=== PATIENT | male | born 1945 | race Caucasian/White ===

== ENCOUNTER 2017-12-21 22:40 | Emergency (ER) | payer MEDICARE, OTHER ==
--- NOTE | 2017-12-21 22:56 | EDM.PDOC ---
ED HPI GENERAL MEDICAL PROBLEM - General Chief Complaint: Genitourinary Problem Stated Complaint: can't pee Time Seen by Provider: 12/21/17 22:44 Source of Information: Reports: Patient History Limitations: Reports: No Limitations - History of Present Illness INITIAL COMMENTS - FREE TEXT/NARRATIVE: Patient presents to the emergency room this evening with complaints of inability to urinate. Most recently was at [facility] in [place] to have his gallbladder removed which was done on Monday of this week. Before discharge on Monday he was unable to urinate saluted straight catheter him at that time he is unable to tell me what the amount voided was. He is here this evening with concerns that he has urinary retention. He denies having any pressure or pain to the lower pelvic area. He denies chest pain, headache, abdominal pain, blood in his urine or stool. He has not urinated since yesterday, he did have dialysis yesterday. History of end stage renal disease requiring dialysis on , , . AV fistula to left arm Primary doctor is Anuj Hutchins at the [facility] in [place]. Additional medical history includes Onset: Gradual Severity: Mild Worsens with: Reports: None Associated Symptoms: Reports: No Other Symptoms - Related Data Allergies Allergy/AdvReac Type Severity Reaction Status Date / Time cat dander Allergy Sneezing Verified 12/21/17 23:02 codeine Allergy Nausea and Verified 12/21/17 23:02 Vomiting cortisone Allergy Other Verified 12/21/17 23:02 latex Allergy Itching Verified 12/21/17 23:02 NSAIDS (Non-Steroidal Allergy Other Verified 12/21/17 23:02 Anti-Inflamma contrast dye Allergy Cough Uncoded 12/21/17 23:02 Home Meds: Home Meds Albuterol Sulfate [Albuterol Sulfate HFA] 1 puff IH Q4HR PRN 03/20/14 [History] Budesonide/Formoterol [Symbicort 160-4.5 MCG] 2 puff INH BID 03/20/14 [History] Gabapentin [Neurontin] 100 mg PO TID 05/03/14 [History] Nitroglycerin [Nitrostat] 0.4 mg SL ASDIRECTED PRN 05/03/14 [History] Tiotropium [Spiriva HandiHaler] 18 mcg INH ASDIRECTED 05/03/14 [History] atorvaSTATin [Lipitor] 40 mg PO BEDTIME 05/03/14 [History] Amiodarone HCl 200 mg PO DAILY 08/11/14 [History] Cholecalciferol (Vitamin D3) [Vitamin D3] 1,000 unit PO DAILY 08/11/14 [History] Ticagrelor [Brilinta] 90 mg PO BID 08/11/14 [History] Furosemide 40 mg PO DAILY 12/16/14 [History] Midodrine 5 mg PO MOWEFR@10 12/16/14 [History] Darbepoetin Syd [Aranesp] 25 mcg IV ASDIRECTED 05/15/15 [History] Doxercalciferol [Hectorol] 2 mcg IV ASDIRECTED 05/15/15 [History] Metoprolol Tartrate 12.5 mg PO ASDIRECTED 05/15/15 [History] Sodium Ferric Gluconat/Sucrose [Ferrlecit 62.5 mg/5 ml Vial] 12.5 mg IV ASDIRECTED 05/15/15 [History] Acetaminophen/oxyCODONE [Percocet 325-5 MG] 1 - 2 tab PO QID PRN 10/12/16 [ History] Aspirin 81 mg PO DAILY 10/12/16 [History] Ferrous Sulfate [Iron] 325 mg PO BID 10/12/16 [History] Multivitamin [Multivitamins] 0.5 tab PO BID 10/12/16 [History] Vit B Cmplx NO3/Fa/C/Biot/Zinc [Nephplex Rx] 1 each PO DAILY 10/12/16 [History] oxyCODONE ER [OxyCONTIN] 10 mg PO Q4H PRN 10/12/16 [History] Past Medical History Cardiovascular History: Reports: CAD, Heart Failure Respiratory History: Reports: COPD Genitourinary History: Reports: Chronic Renal Insuffiency, Dialysis Other Musculoskeletal History: rib fx Other Dermatologic History: very dry scaly skin Social & Family History - Tobacco Use Smoking Status *Q: Unknown Ever Smoked Years of Tobacco use: 50 Used Tobacco, but Quit: Yes Month/Year Tobacco Last Used: 20 years ago Second Hand Smoke Exposure: No - Alcohol Use Days Per Week of Alcohol Use: 0 Number of Drinks Per Day: 1 Total Drinks Per Week: 0 - Recreational Drug Use Recreational Drug Use: No ED ROS GENERAL - Review of Systems Review Of Systems: See Below Constitutional: Reports: No Symptoms HEENT: Reports: No Symptoms Respiratory: Reports: Shortness of Breath (not new onset) Cardiovascular: Reports: No Symptoms Endocrine: Reports: No Symptoms GI/Abdominal: Reports: No Symptoms : Reports: Urinary Retention Musculoskeletal: Reports: No Symptoms Skin: Reports: No Symptoms Neurological: Reports: No Symptoms Psychiatric: Reports: No Symptoms ED EXAM, RENAL/ - Physical Exam Exam: See Below Exam Limited By: No Limitations General Appearance: Alert, WD/WN, No Apparent Distress Eye Exam: Bilateral Eye: EOMI, Normal Inspection, PERRL Ears: Normal External Exam, Normal Canal, Hearing Grossly Normal, Normal TMs Head: Atraumatic, Normocephalic Neck: Normal Inspection, Supple, Non-Tender, Full Range of Motion Respiratory/Chest: Crackles Cardiovascular: Normal Peripheral Pulses, Regular Rate, Rhythm, No Edema, No Gallop, No JVD, No Murmur, No Rub GI/Abdominal: Normal Bowel Sounds, Soft, Non-Tender, No Organomegaly, No Distention, No Abnormal Bruit, No Mass Extremities: Normal Inspection, Normal Range of Motion, Non-Tender, Normal Capillary Refill, No Pedal Edema Neurological: Alert, Oriented, CN II-XII Intact, Normal Cognition, Normal Gait, Normal Reflexes, No Motor/Sensory Deficits Psychiatric: Normal Affect, Normal Mood Skin Exam: Warm, Dry, Intact, Normal Color, No Rash Lymphatic: No Adenopathy Course - Orders/Labs/Meds Orders: Active Orders 24 hr Category Date Time Status Bladder Scan [RC] ONETIME Care 12/21/17 22:45 Ordered CBC WITH AUTO DIFF [HEME] Stat Lab 12/21/17 22:45 Ordered CMP [COMPREHENSIVE METABOLIC PN,CMP] [CHEM] Stat Lab 12/21/17 22:45 Ordered URINALYSIS W/MICROSCOPIC [UA W/MICROSCOPIC] [URIN] Stat Lab 12/21/17 22:47 Ordered - Re-Assessments/Exams Free Text/Narrative Re-Assessment/Exam: 12/21/17 23:06 Patient bladder scanned for 112 mL. He refused further work up and wants to leave now that he has peace of mind he is not retaining urine. Departure - Departure Time of Disposition: 23:05 Disposition: Home, Self-Care 01 Condition: Good Clinical Impression: Postoperative urinary retention - Discharge Information Instructions: Acute Urinary Retention, Male Forms: ED Department Discharge Additional Instructions: If you continue to have problems with urination, please return to the [facility] for additional bladder scan and possible catheter placement. If you have any further questions or concerns please call the hospital. - Problem List & Annotations (1) Renal failure SNOMED Code(s): 93706191 Code(s): N19 - UNSPECIFIED KIDNEY FAILURE Status: Chronic Priority: High Current Visit: No Qualifiers: Renal failure chronicity: acute on chronic Chronic kidney disease stage: on chronic dialysis (2) Postoperative urinary retention SNOMED Code(s): 227470070 Code(s): N99.89 - OTH POSTPROCEDURAL COMPLICATIONS AND DISORDERS OF SYS; R33.8 - OTHER RETENTION OF URINE Status: Acute Priority: Low Current Visit : Yes - Problem List Review Problem List Initiated/Reviewed/Updated: Yes - My Orders Last 24 Hours: My Active Orders 12/21/17 22:45 Bladder Scan [RC] ONETIME CBC WITH AUTO DIFF [HEME] Stat CMP [COMPREHENSIVE METABOLIC PN,CMP] [CHEM] Stat 12/21/17 22:47 URINALYSIS W/MICROSCOPIC [UA W/MICROSCOPIC] [URIN] Stat - Assessment/Plan Last 24 Hours: My Active Orders 12/21/17 22:45 Bladder Scan [RC] ONETIME CBC WITH AUTO DIFF [HEME] Stat CMP [COMPREHENSIVE METABOLIC PN,CMP] [CHEM] Stat 12/21/17 22:47 URINALYSIS W/MICROSCOPIC [UA W/MICROSCOPIC] [URIN] Stat Assessment:: post op. urinary retention Plan: If you continue to have problems with urination, please return to the [facility] for additional bladder scan and possible catheter placement. If you have any further questions or concerns please call the hospital.
[2017-12-21 23:01] VITALS: BP 130/34
== END 2017-12-21 23:09 | disposition home or self-care (01) ==
LOC: VM.ED 22:40
DX: N99.89 Other postprocedural complications and disorders of genitourinary system (principal); R33.9 Retention of urine, unspecified; I50.9 Heart failure, unspecified; N18.9 Chronic kidney disease, unspecified; Z88.5 Allergy status to narcotic agent; Z91.040 Latex allergy status; Z91.048 Other nonmedicinal substance allergy status; Z91.041 Radiographic dye allergy status; Z79.899 Other long term (current) drug therapy; Z87.891 Personal history of nicotine dependence
CPT/HCPCS: 51798; 99283

== ENCOUNTER 2018-09-11 11:11 | Emergency (ER) | payer MEDICARE, OTHER, MEDICAID ==
[2018-09-11] MEDS ORDERED: Albuterol/Ipratropium 3.0-0.5 MG/3 ML Neb Soln NEB ONE (11:23)
[2018-09-11] MEDS ORDERED: Sodium Chloride 0.9% 10 ML Syringe FLUSH PRN (11:23)
[2018-09-11] MEDS ORDERED: methylPREDNISolone Sodium Succinate 125 MG/2 ML SDV IVPUSH ONE (11:24)
[2018-09-11] MEDS ORDERED: cefTRIAXone 1 GM Vial IVPUSH ONE (12:08)
[2018-09-11 12:25] LABS: CHLORIDE,CL 103 mmol/L (98-107); SODIUM,NA 143 mmol/L (136-145)
--- NOTE | 2018-09-11 12:25 | EDM.PDOC ---
ED HPI GENERAL MEDICAL PROBLEM - General Chief Complaint: General Stated Complaint: SOB; wheezing Time Seen by Provider: 09/11/18 11:20 Source of Information: Reports: Patient, Old Records, RN, RN Notes Reviewed History Limitations: Reports: No Limitations - History of Present Illness INITIAL COMMENTS - FREE TEXT/NARRATIVE: Patient is brought to the ED at [facility] via EMS after they were called by the Home Health RN. Apparently the patient was lethargic, chills, shaky and had a temp of 100.3. Patient has a productive cough with audible wheezing. Patient did not go to HD yesterday due to feeling ill. Patient states it is hard to breath and he feels short of breath. He is not sure when his symptoms started. No chest pain or focal neurological deficits. Patient states he feels considerably weak and fatigued. Onset: Unknown/Unsure Right Hip Pain Score (Numeric/FACES): 8 - Related Data Allergies Allergy/AdvReac Type Severity Reaction Status Date / Time cat dander Allergy Sneezing Verified 06/07/18 13:46 cortisone Allergy Other Verified 06/07/18 13:46 latex Allergy Itching Verified 06/07/18 13:46 NSAIDS (Non-Steroidal Allergy Other Verified 06/07/18 13:46 Anti-Inflamma codeine AdvReac Nausea and Verified 06/07/18 13:46 Vomiting Iodinated Contrast- Oral and AdvReac Cough Verified 09/11/18 12:25 IV Dye Home Meds: Home Meds Albuterol Sulfate [Albuterol Sulfate HFA] 1 puff IH Q4HR PRN 03/20/14 [History] Budesonide/Formoterol [Symbicort 160-4.5 MCG] 2 puff INH BID 03/20/14 [History] Nitroglycerin [Nitrostat] 0.4 mg SL ASDIRECTED PRN 05/03/14 [History] Tiotropium [Spiriva HandiHaler] 18 mcg INH DAILY 05/03/14 [History] atorvaSTATin [Lipitor] 40 mg PO BEDTIME 05/03/14 [History] Furosemide 40 mg PO DAILY 12/16/14 [History] Darbepoetin Syd [Aranesp] 25 mcg IV ASDIRECTED 05/15/15 [History] Doxercalciferol [Hectorol] 2 mcg IV ASDIRECTED 05/15/15 [History] Metoprolol Tartrate 12.5 mg PO LYRICUTHSA@08 05/15/15 [History] Aspirin 81 mg PO DAILY 10/12/16 [History] Multivitamin [Multivitamins] 0.5 tab PO BEDTIME 10/12/16 [History] Calcium Carbonate [Tums] 300 mg PO BID 09/11/18 [History] Docusate Sodium [Colace] 100 - 200 mg PO BID PRN 09/11/18 [History] Gabapentin [Neurontin] 100 mg PO BEDTIME 09/11/18 [History] Metoprolol Tartrate 12.5 mg PO BEDTIME 09/11/18 [History] Pramipexole [Mirapex] 0.125 mg PO BEDTIME 09/11/18 [History] Temazepam [Restoril] 15 mg PO BEDTIME PRN 09/11/18 [History] Umeclidinium [place] [Incruse Ellipta*] 62.5 mcg IH DAILY 09/11/18 [History] oxyCODONE HCl [Oxycodone HCl] 10 mg PO Q4H PRN 09/11/18 [History] Past Medical History Cardiovascular History: Reports: Afib, CAD, Heart Failure, High Cholesterol, Hypertension, AL, Other (See Below) Other Cardiovascular History: HEALTH PROFESSOR USE ANTICOAGULANT THERAPY, AORTIC STENOSIS Respiratory History: Reports: COPD, Sleep Apnea Gastrointestinal History: Reports: GERD Genitourinary History: Reports: Chronic Renal Insuffiency, Dialysis Other Musculoskeletal History: rib fx, djd Neurological History: Reports: Other (See Below) Other Neuro History: INSOMNIA Endocrine/Metabolic History: Reports: Obesity/BMI 30+, Other (See Below) Other Endocrine/Metabolic History: ABNORMAL GLUCOSE Other Dermatologic History: very dry scaly skin - Past Surgical History GI Surgical History: Reports: Appendectomy, Cholecystectomy, Colonoscopy Musculoskeletal Surgical History: Reports: Carpal Tunnel, Joint Replacement ED ROS GENERAL - Review of Systems Review Of Systems: See Below Constitutional: Reports: Fever, Chills, Weakness, Fatigue Respiratory: Reports: Shortness of Breath, Wheezing, Cough, Sputum Cardiovascular: Denies: Chest Pain, Palpitations GI/Abdominal: Denies: Abdominal Pain, Nausea, Vomiting Skin: Reports: No Symptoms Neurological: Reports: No Symptoms ED EXAM, GENERAL - Physical Exam Exam: See Below Exam Limited By: No Limitations General Appearance: Alert, No Apparent Distress Respiratory/Chest: No Respiratory Distress, Decreased Breath Sounds, Crackles, Rhonchi, Wheezing Cardiovascular: Regular Rate, Rhythm GI/Abdominal: Soft, Non-Tender, Abnormal Bowel Sounds (Hypoactive) Neurological: Alert, Oriented Skin Exam: Warm, Dry, Intact, Normal Color Course - Vital Signs Last Recorded V/S: Last Vital Signs Temp 37.7 C 09/11/18 11:11 Pulse 115 H 09/11/18 11:11 Resp 28 H 09/11/18 11:11 BP 130/61 09/11/18 11:11 Pulse Ox 92 L 09/11/18 11:11 - Orders/Labs/Meds Orders: Active Orders 24 hr Category Date Time Status Dietary Supplements [RC] BIDMEALS Care 09/11/18 12:08 Active RT Aerosol Therapy [RC] ASDIRECTED Care 09/11/18 11:24 Active Chest 1V Frontal [CR] Stat Exams 09/11/18 11:21 Ordered CULTURE BLOOD [BC] Stat Lab 09/11/18 11:37 Results CULTURE BLOOD [BC] Stat Lab 09/11/18 11:51 Results LACTIC ACID [CHEM] Stat Lab 09/11/18 11:37 Received Piperacillin/Tazobactam [Zosyn] 3.375 gm Med 09/11/18 12:44 Active Sodium Chloride 0.9% [Normal Saline] 100 ml IV STAT Sodium Chloride 0.9% [Saline Flush] Med 09/11/18 11:23 Active 10 ml FLUSH ASDIRECTED PRN Blood Culture x2 Reflex Set [OM.PC] Stat Oth 09/11/18 11:22 Ordered Peripheral IV Insertion Adult [OM.PC] Routine Oth 09/11/18 11:23 Ordered Medication Orders Piperacillin Sod/Tazobactam (Sod 3.375 gm/ Sodium Chloride) 100 mls @ 200 mls/ hr IV STAT ONE Stop: 09/11/18 13:13 Sodium Chloride (Saline Flush) 10 ml FLUSH ASDIRECTED PRN PRN Reason: Keep Vein Open Labs: Laboratory Tests 09/11/18 09/11/18 Range/Units 11:37 11:37 WBC 15.2 H (4.0-10.0) x10^3/uL RBC 3.64 L (4.5-6.0) x10^6/uL Hgb 11.2 L (14.0-18.0) g/dL Hct 35.6 L (40.0-52.0) % MCV 97.8 H D (78.0-93.0) fL MCH 30.8 (26.0-32.0) pg MCHC 31.5 L (32.0-36.0) g/dL RDW Coeff of Ela 16.3 H (10.0-15.0) % Plt Count 172 (130-400) x10^3/uL Neut % (Auto) 87.0 H (50.0-80.0) % Lymph % (Auto) 5.4 L (25.0-50.0) % Ransom % (Auto) 6.1 (2.0-11.0) % Eos % (Auto) 1.1 (0.0-4.0) % Baso % (Auto) 0.4 (0.2-1.2) % Sodium 143 (136-145) mmol/L Potassium 4.4 (3.5-5.1) mmol/L Chloride 103 (98-107) mmol/L Carbon Dioxide 25 (21-32) mmol/L Anion Gap 19.4 (10-20) mmol/L BUN 52 H (7-18) mg/dL Creatinine 10.0 H* D (0.70-1.30) mg/dL Est Cr Clr Drug Dosing TNP Estimated GFR (MDRD) 5 Glucose 136 H (74-106) mg/dL Calcium 9.4 (8.5-10.1) mg/dL Corrected Calcium 10.12 H (8.5-10.1) mg/dL Total Bilirubin 0.5 (0.2-1.0) mg/dL AST 14 L (15-37) U/L ALT 16 (16-63) U/L Alkaline Phosphatase 189 H (46-116) U/L C-Reactive Protein 1.7 H (<=0.9) mg/dL NT-Pro-B Natriuret Pep 3020 H (<=125) pg/mL Total Protein 7.6 (6.4-8.2) g/dL Albumin 3.1 L (3.4-5.0) g/dL Globulin 4.5 Albumin/Globulin Ratio 0.69 Meds: Medications Generic Name Dose Route Start Last Admin Trade Name Freq PRN Reason Stop Dose Admin Piperacillin Sod/Tazobactam 100 mls @ 200 mls/hr 09/11/18 12:44 Sod 3.375 gm/ Sodium Chloride IV 09/11/18 13:13 STAT ONE Sodium Chloride 10 ml 09/11/18 11:23 Saline Flush FLUSH ASDIRECTED PRN Keep Vein Open Discontinued Medications Generic Name Dose Route Start Last Admin Trade Name Freq PRN Reason Stop Dose Admin Albuterol/Ipratropium 3 ml 09/11/18 11:23 09/11/18 11:35 Duoneb 3.0-0.5 Mg/3 Ml NEB 09/11/18 11:24 3 ml ONETIME ONE Administration Ceftriaxone Sodium 1 gm 09/11/18 12:08 09/11/18 12:12 Rocephin IVPUSH 09/11/18 12:09 1 gm STAT ONE Administration Methylprednisolone Sodium Succinate 125 mg 09/11/18 11:24 09/11/18 11:54 Solu-Medrol IVPUSH 09/11/18 11:25 125 mg ONETIME ONE Administration Departure - Departure Time of Disposition: 12:48 Disposition: DC/Tfer to [facility] 02 Condition: Fair Clinical Impression: Hypoxia, End stage renal disease on dialysis Community acquired pneumonia Qualifiers: Laterality: right Lung location: middle lobe of lung Qualified Code(s): J18.1 - Lobar pneumonia, unspecified organism - Discharge Information *PRESCRIPTION DRUG MONITORING PROGRAM REVIEWED*: Not Applicable *COPY OF PRESCRIPTION DRUG MONITORING REPORT IN PATIENT [place]: Not Applicable Forms: Interfacility Transfer EMTALA - Problem List Review Problem List Initiated/Reviewed/Updated: Yes - My Orders Last 24 Hours: My Active Orders 09/11/18 11:21 Chest 1V Frontal [CR] Stat 09/11/18 11:22 Blood Culture x2 Reflex Set [OM.PC] Stat 09/11/18 11:23 Sodium Chloride 0.9% [Saline Flush] 10 ml FLUSH ASDIRECTED PRN Peripheral IV Insertion Adult [OM.PC] Routine 09/11/18 11:24 RT Aerosol Therapy [RC] ASDIRECTED 09/11/18 11:37 CULTURE BLOOD [BC] Stat LACTIC ACID [CHEM] Stat 09/11/18 11:51 CULTURE BLOOD [BC] Stat 09/11/18 12:08 Dietary Supplements [RC] BIDMEALS 09/11/18 12:44 Piperacillin/Tazobactam [Zosyn] 3.375 gm Sodium Chloride 0.9% [Normal Saline] 100 ml IV STAT - Assessment/Plan Last 24 Hours: My Active Orders 09/11/18 11:21 Chest 1V Frontal [CR] Stat 09/11/18 11:22 Blood Culture x2 Reflex Set [OM.PC] Stat 09/11/18 11:23 Sodium Chloride 0.9% [Saline Flush] 10 ml FLUSH ASDIRECTED PRN Peripheral IV Insertion Adult [OM.PC] Routine 09/11/18 11:24 RT Aerosol Therapy [RC] ASDIRECTED 09/11/18 11:37 CULTURE BLOOD [BC] Stat LACTIC ACID [CHEM] Stat 09/11/18 11:51 CULTURE BLOOD [BC] Stat 09/11/18 12:08 Dietary Supplements [RC] BIDMEALS 09/11/18 12:44 Piperacillin/Tazobactam [Zosyn] 3.375 gm Sodium Chloride 0.9% [Normal Saline] 100 ml IV STAT Assessment:: CAP, bilateral Hypoxia ESRD on HD Plan: Case discussed with Dr. England, Hospitalist. Patient accepted in transfer. Patient will be sent via ALS ground. Patient agrees with transfer and wishes to proceed.
[2018-09-11 12:26] LABS: ANION GAP 19.4 mmol/L (10-20)
[2018-09-11] MEDS ORDERED: Piperacillin/Tazobactam 3.375 GM in Sodium Chloride 0.9% 100 ML IV ONE (12:44)
[2018-09-11] MEDS ORDERED: Sodium Chloride 0.9% 500 ML IV ONE (12:49)
--- NOTE | 2018-09-11 13:03 | CR ---
[id number] RAD/RAD Chest PA or AP 1V EXAM: FRONTAL CHEST INDICATION: Shortness of breath, wheezing and hypoxia. COMPARISON: March 06, 2018. DISCUSSION: Linear branching opacities in the right upper lobe have not definitely changed when comparison is made with the CT examination of March 06, 2017. Considerations would include bronchocele with mucus impaction or less likely vascular malformation. Contrast-enhanced study or bronchoscopy may be useful for further characterization. There is mild scarring in the lung bases with no definite acute infiltrates. Normal heart size. Chronic left rib fractures. IMPRESSION: 1. Stable linear branching right suprahilar opacity is consistent with bronchocele (mucous impacted dilated airway). No definite acute infiltrates. Richard Walton MD 09/11/18 1300 Thank you for allowing us to participate in the care of your patient.
[2018-09-11 13:24] VITALS: BP 124/52
== END 2018-09-11 13:38 | disposition short-term general hospital (02) ==
LOC: VM.ED 11:11
DX: J18.1 Lobar pneumonia, unspecified organism (principal); R09.02 Hypoxemia; I13.2 Hypertensive heart and chronic kidney disease with heart failure and with stage 5 chronic kidney disease, or end stage renal disease; N18.6 End stage renal disease; I50.9 Heart failure, unspecified; J44.9 Chronic obstructive pulmonary disease, unspecified; E66.9 Obesity, unspecified; Z99.2 Dependence on renal dialysis; Z91.048 Other nonmedicinal substance allergy status; Z88.5 Allergy status to narcotic agent; Z79.899 Other long term (current) drug therapy
CPT/HCPCS: 36415; 71045; 80053; 83605; 83880; 85025; 86140; 87040; 94640; 96365; 96375; 99284-GF; 99285; J0696; J2543; J2930; J7040; J7050; J7620-GY